=== PATIENT | female | born 1960 | race Caucasian/White ===

== ENCOUNTER 2020-11-21 10:09 | Outpatient (CLI) | payer OTHER | END 2020-11-21 10:10 | disposition home or self-care (01) | LOC: DTY/OP 10:09 | PROVIDERS: ATTEND Specialist | DX: Z01.818 Encounter for other preprocedural examination (principal); E66.01 Morbid (severe) obesity due to excess calories | CPT/HCPCS: 97802 ==

== ENCOUNTER 2021-02-21 13:00 | Inpatient (IN) | payer OTHER ==
[2021-02-25 10:02] VITALS: BMI 58.5
[2021-02-26] MEDS ORDERED: Acetaminophen 500 MG TAB ONE (06:10)
[2021-02-26] MEDS ORDERED: cefOXitin Sodium/Dextrose 2 GM/50 ML BAG ONE (06:10)
[2021-02-26] MEDS ORDERED: Ketorolac Tromethamine 30 MG/ML VIAL ONE (06:10)
[2021-02-26] MEDS ORDERED: Heparin 5,000 UNITS/ML VIAL ONE (06:10)
[2021-02-26] MEDS ORDERED: Scopolamine 1.5 mg/72 hour Patch ONE (06:10)
[2021-02-26] MEDS ORDERED: Lidocaine 1% w/Epinephrine 1:100K 20 ML VIAL ONE (06:42)
[2021-02-26] MEDS ORDERED: Bupivacaine 0.25% HCL 30 ML VIAL ONE (06:42)
[2021-02-26] MEDS ORDERED: Midazolam HCl 2 mg/2 ml Vial ONE (06:49)
[2021-02-26] MEDS ORDERED: Fentanyl 100 MCG/2 ML VIAL ONE ×2 (06:49→11:16)
[2021-02-26] MEDS ORDERED: SUGAMMADEX SODIUM 200 MG/2 ML VIAL ONE (07:04)
[2021-02-26] MEDS ORDERED: PROPOFOL 200 MG/20 ML VIAL ONE (07:32)
[2021-02-26] MEDS ORDERED: Ondansetron PF 4 MG/2 ML Vial ONE (07:32)
[2021-02-26] MEDS ORDERED: Esmolol 100 MG/10 ML VIAL ONE (07:32)
[2021-02-26] MEDS ORDERED: Lidocaine 1% PF 5 ML VIAL ONE (07:32)
[2021-02-26] MEDS ORDERED: Rocuronium Bromide 10 MG/ML (10ML VIAL) ONE (07:32)
[2021-02-26] MEDS ORDERED: Glycopyrrolate 0.2 MG/ML 5 ML SYRINGE ONE (07:32)
[2021-02-26] MEDS ORDERED: Dexamethasone 20 MG/5 ML VIAL ONE (07:32)
[2021-02-26] MEDS ORDERED: Ondansetron PF 4 MG/2 ML Vial IVP PRN (07:48)
[2021-02-26] MEDS ORDERED: Morphine 2 MG/ML VIAL SLOW IVP PRN (07:48)
[2021-02-26] MEDS ORDERED: diphenhydrAMINE 50 MG/ML VIAL IVP PRN (07:48)
[2021-02-26] MEDS ORDERED: Morphine 4 MG/ML VIAL SLOW IVP PRN (07:48)
[2021-02-26] MEDS ORDERED: Hydrocodone-Acetamin 15 ML UDCUP PO PRN (07:48)
[2021-02-26] MEDS ORDERED: hydrALAZINE 20 MG/ML VIAL SLOW IVP PRN (07:48)
[2021-02-26] MEDS ORDERED: Sodium Chloride 0.9% (PF) 10 ML VIAL FS PRN (08:15)
[2021-02-26] MEDS ORDERED: HYDROmorphone 2 MG/ML VIAL ONE (09:03)
[2021-02-26] MEDS ORDERED: Promethazine HCl 25 MG/ML VIAL IVPB PRN (10:23)
[2021-02-26] MEDS ORDERED: HYDROmorphone 2 MG/ML VIAL SLOW IVP PRN (10:23)
[2021-02-26] MEDS ORDERED: Ondansetron HCl/PF 4 MG/2 ML Vial IVP PRN (10:23)
[2021-02-26] MEDS ORDERED: Promethazine HCl 25 MG/ML VIAL IM PRN (10:23)
[2021-02-26] MEDS ORDERED: Labetalol HCl 100 MG/20 ML VIAL SLOW IVP PRN (10:23)
[2021-02-26] MEDS ORDERED: Promethazine HCl 25 MG/ML VIAL ONE (10:48)
[2021-02-26] MEDS ORDERED: hydrALAZINE 20 MG/ML VIAL ONE (11:00)
[2021-02-26] MEDS: D5 1/2 NS w/20 mEq KCL 1,000 ML IV SCH ×4 (13:22→20:06)
[2021-02-26] MEDS: Ketorolac Tromethamine 30 MG/ML VIAL IVP SCH ×2 (13:33→18:00)
[2021-02-26] MEDS: Pantoprazole 40 MG VIAL IVP SCH (13:34)
[2021-02-26] MEDS ORDERED: Enoxaparin Sodium 40 MG/0.4 ML SYRINGE SC SCH (21:00)
[2021-02-27] MEDS: Ketorolac Tromethamine 30 MG/ML VIAL IVP SCH ×3 (00:38→12:07)
[2021-02-27] MEDS: D5 1/2 NS w/20 mEq KCL 1,000 ML IV SCH (04:55)
[2021-02-27 06:07] LABS: #Lymphocytes 1.8 thou/uL (1.20-3.40); #Monocytes 0.6 thou/uL (0.11-0.59); #Neutrophils 7.5 thou/uL (1.40-6.50); %Eosinophils 0.2 % (0.0-10.0); %Lymphocytes 17.9 % (21.0-51.0); %Monocytes 6.2 % (0.0-10.0); %Neutrophils 75.7 % (42.0-75.0); Mean Corpuscular HGB CONC 32.8 g/dL (32.0-36.0); Mean Corpuscular Volume 94.6 fL (78.0-98.0); Mean Platelet Volume 8.8 fL (7.4-10.4); Platelet Count 133 thou/uL (130-400); RBC Distribution Width 12.4 % (11.5-14.5); Red Blood Cell (RBC) Count 4.52 mill/uL (4.20-5.40); White Blood Cell (WBC) Count 9.9 thou/uL (4.8-10.8)
[2021-02-27 06:26] LABS: Anion Gap 10 mmol/L (10-20); BUN (Urea Nitrogen) 6 mg/dL (9.8-20.1); Calc. Creatinine Clearance 199 mL/min (70-130); Calcium 8.6 mg/dL (7.8-10.44); Carbon Dioxide 25 mmol/L (22-29); Chloride 108 mmol/L (98-107); Glucose 131 mg/dL (70-105); Potassium 4.1 mmol/L (3.5-5.1); Sodium 139 mmol/L (136-145)
[2021-02-27] MEDS: Pantoprazole 40 MG VIAL IVP SCH (09:44)
[2021-02-27 11:46] VITALS: BP 163/87; TEMP 98
== END 2021-02-27 14:27 | disposition home or self-care (01) | DRG 621 ==
LOC: SURG A 02-26 06:02 → SJJU 02-26 12:59
PROVIDERS: ADMIT Specialist; ATTEND Specialist
PROC: 0DB64Z3 Excision of Stomach, Percutaneous Endoscopic Approach, Vertical (ICD-10-PCS; principal; 2021-02-26)
PROC: 0DJ08ZZ Inspection of Upper Intestinal Tract, Via Natural or Artificial Opening Endoscopic (ICD-10-PCS; 2021-02-26)
DX: E66.01 Morbid (severe) obesity due to excess calories (principal); Z20.822 Contact with and (suspected) exposure to COVID-19; G47.30 Sleep apnea, unspecified; M25.59 Pain in other specified joint; Z68.44 Body mass index [BMI] 60.0-69.9, adult; Z90.710 Acquired absence of both cervix and uterus; Z79.899 Other long term (current) drug therapy
CPT/HCPCS: 36415; 80048; 85025; 88307; 88342; 94760; C9113; J0360; J0694; J1100; J1170; J1644; J1650; J1885; J2250; J2405; J2550; J2704; J3010; J3480; S0020